=== PATIENT | male | born 1990 | race Two or more races ===

== ENCOUNTER 2016-11-09 20:01 | Emergency (ER) | payer SELFPAY ==
[~2016-11-09] VITALS: Ht 180.3 cm; Wt 113.4 kg
[2016-11-09 20:17] LABS: BASO # 0.1 x10^3/uL (0.0-0.2); BASO % 1 % (0-3); EOS % 2 % (0-3); HEMATOCRIT 40.7 % (39.0-53.0); HEMOGLOBIN 14.5 g/dL (13.0-17.5); LYMPH # 2.3 x10^3/uL (1.0-4.8); LYMPH % 20 % (24-48); MEAN CORPUSCULAR HEMOGLOBIN 30 pg (25-35); MEAN CORPUSCULAR HGB CONC 36 g/dL (31-37); MEAN CORPUSCULAR VOLUME 85 fL (79-100); MONO % 7 % (0-9); NEUT % 71 % (31-73); PLATELET COUNT 250 x10^3/uL (140-400); RED BLOOD COUNT 4.81 x10^6/uL (4.30-5.70); RED CELL DISTRIBUTION WIDTH 13.1 % (11.5-14.5); WHITE BLOOD COUNT 11.4 x10^3/uL (4.0-11.0)
[2016-11-09 20:34] LABS: ALBUMIN 3.7 g/dL (3.4-5.0); CALCIUM 8.5 mg/dL (8.5-10.1); CREATININE 0.9 mg/dL (0.7-1.3); DIRECT BILIRUBIN 0.2 mg/dL (0.0-0.2); TOTAL BILIRUBIN 0.8 mg/dL (0.2-1.0); TOTAL PROTEIN 7.4 g/dL (6.4-8.2)
[2016-11-09 20:35] LABS: POTASSIUM 2.8 mmol/L (3.5-5.1)
[2016-11-09] MEDS: HYDROmorphone 2 MG/ML VIAL IV PRN ×2 (21:16→23:12)
[2016-11-09] MEDS ORDERED: IV NORMAL SALINE 1000ML BAG 1,000 ML IV ONE (21:30)
[2016-11-09] MEDS ORDERED: ONDANSETRON PF 4 MG/2 ML VIAL. IV ONE (21:30)
[2016-11-09 21:31] LABS: BILIRUBIN,URINE NEGATIVE (NEG); GLUCOSE,URINE NEGATIVE (NEG); NITRITE,URINE NEGATIVE (NEG); PROTEIN,URINE NEGATIVE (NEG-TRACE)
[2016-11-09 21:42] LABS: BACTERIA,URINE FEW /HPF (0-FEW); RBC,URINE 0 /HPF (0-2); SQUAMOUS EPITHELIAL CELL,UR OCC /LPF
[2016-11-09] MEDS ORDERED: IOHEXOL 300 MG/ML 75 ML VIAL IV ONE (22:00)
[2016-11-09] MEDS ORDERED: CONTRAST GIVEN MC PRN (22:00)
[2016-11-09] MEDS: POTASSIUM CHLORIDE 10MEQ 100 ML IV SCH ×2 (22:15→23:13)
[2016-11-09] MEDS ORDERED: FAMO20TA5 PO (23:15)
--- NOTE | 2016-11-09 23:15 | PHYS DOC ---
Past Medical History Past Medical History: Pancreatitis Past Surgical History: Other Additional Past Surgical Histo: R TESTICLE REMOVAL Alcohol Use: Heavy Drug Use: None Adult General Chief Complaint Chief Complaint: ABDOMINAL PAIN HPI HPI 26-year-old male presenting to the emergency department today with abdominal pain. It is in the epigastrium. It is nonradiating mild to moderate. He states it feels like his recent episode of pancreatitis. His pain is been present for the past few hours. It is not associated with nausea or vomiting. Review of systems is negative for chest pain shortness of breath fevers or chills. He denies diarrhea or constipation. He was able to eat today without difficulty. All other review of systems is negative unless otherwise noted in history of present illness. Review of Systems Review of Systems SEE ABOVE. Current Medications Current Medications Current Medications Medications (Trade) Dose Ordered Sig/Audelia Start Time Stop Time Status Last Admin Dose Admin Famotidine (Pepcid) 20 mg 1X ONCE 11/09/16 23:30 11/09/16 23:31 DC 11/09/16 23:55 20 MG Hydromorphone HCl (Dilaudid) 0.5 mg PRN Q1HR PRN 11/09/16 21:00 11/10/16 02:07 DC 11/09/16 23:12 0.5 MG Info (Do NOT chart on this entry -- for MONITORING) 1 each PRN DAILY PRN 11/09/16 22:00 11/10/16 02:07 DC Iohexol (Omnipaque 300 Mg/ml) 75 ml 1X ONCE 11/09/16 22:00 11/09/16 22:01 DC 11/09/16 21:54 75 ML Ondansetron HCl (Zofran) 4 mg 1X ONCE 11/09/16 21:30 11/09/16 21:31 DC 11/09/16 21:15 4 MG Potassium Chloride 100 ml @ 100 mls/hr Q1H 11/09/16 22:00 11/10/16 02:07 DC 11/09/16 23:13 100 MLS/HR Sodium Chloride 1,000 ml @ 1,000 mls/hr 1X ONCE 11/09/16 21:30 11/09/16 22:29 DC 11/09/16 21:16 1,000 MLS/HR Allergies Allergies Allergies Coded Allergies Type Severity Reaction Last Updated Verified No Known Drug Allergies 04/12/15 No Physical Exam Physical Exam Constitutional: Well developed, well nourished, no acute distress, non-toxic appearance. HENT: Normocephalic, atraumatic, bilateral external ears normal, oropharynx moist, no oral exudates, nose normal. [] Eyes: PERRLA, EOMI, conjunctiva normal, no discharge. Neck: Normal range of motion, no tenderness, supple, no stridor. [] Cardiovascular:Heart rate regular rhythm, no murmur Lungs & Thorax: Bilateral breath sounds clear to auscultation [] Abdomen: Abdomen is soft and minimally tender in the epigastrium without rebound tenderness or guarding. Negative McBurney's point. Negative Pabon sign. Skin: Warm, dry, no erythema, no rash. [] Back: No tenderness, no CVA tenderness. Extremities: No tenderness, no cyanosis, no clubbing, ROM intact, no edema. [] Neurologic: Alert and oriented X 3, normal motor function, normal sensory function, no focal deficits noted. Psychologic: Affect normal, judgement normal, mood normal. [] Current Patient Data Vital Signs Vital Signs Date Time Temp Pulse Resp B/P (MAP) Pulse Ox O2 Delivery O2 Flow Rate FiO2 11/09/16 23:30 72 128/89 (102) 97 Room Air 11/09/16 20:30 18 11/09/16 20:13 98.8 98.8 Lab Values Laboratory Tests Test 11/09/16 20:10 11/09/16 21:14 White Blood Count 11.4 x10^3/uL (4.0-11.0) H Red Blood Count 4.81 x10^6/uL (4.30-5.70) Hemoglobin 14.5 g/dL (13.0-17.5) Hematocrit 40.7 % (39.0-53.0) Mean Corpuscular Volume 85 fL (79-100) Mean Corpuscular Hemoglobin 30 pg (25-35) Mean Corpuscular Hemoglobin Concent 36 g/dL (31-37) Red Cell Distribution Width 13.1 % (11.5-14.5) Platelet Count 250 x10^3/uL (140-400) Neutrophils (%) (Auto) 71 % (31-73) Lymphocytes (%) (Auto) 20 % (24-48) L Monocytes (%) (Auto) 7 % (0-9) Eosinophils (%) (Auto) 2 % (0-3) Basophils (%) (Auto) 1 % (0-3) Neutrophils # (Auto) 8.1 x10^3uL (1.8-7.7) H Lymphocytes # (Auto) 2.3 x10^3/uL (1.0-4.8) Monocytes # (Auto) 0.8 x10^3/uL (0.0-1.1) Eosinophils # (Auto) 0.2 x10^3/uL (0.0-0.7) Basophils # (Auto) 0.1 x10^3/uL (0.0-0.2) Sodium Level 141 mmol/L (136-145) Potassium Level 2.8 mmol/L (3.5-5.1) *L Chloride Level 104 mmol/L (98-107) Carbon Dioxide Level 28 mmol/L (21-32) Anion Gap 9 (6-14) Blood Urea Nitrogen 12 mg/dL (8-26) Creatinine 0.9 mg/dL (0.7-1.3) Estimated GFR (Cockcroft-Gault) 102.0 Glucose Level 101 mg/dL (70-99) H Calcium Level 8.5 mg/dL (8.5-10.1) Total Bilirubin 0.8 mg/dL (0.2-1.0) Direct Bilirubin 0.2 mg/dL (0.0-0.2) Aspartate Amino Transferase (AST) 238 U/L (15-37) H Alanine Aminotransferase (ALT) 160 U/L (16-63) H Alkaline Phosphatase 58 U/L (46-116) Total Protein 7.4 g/dL (6.4-8.2) Albumin 3.7 g/dL (3.4-5.0) Lipase 258 U/L (73-393) Urine Collection Type Unknown Urine Color Yellow Urine Clarity Clear Urine pH 7.0 Urine Specific [place] 1.010 Urine Protein Negative mg/dL (NEG-TRACE) Urine Glucose (UA) Negative mg/dL (NEG) Urine Ketones (Stick) Negative mg/dL (NEG) Urine Blood Negative (NEG) Urine Nitrite Negative (NEG) Urine Bilirubin Negative (NEG) Urine Urobilinogen Dipstick 1.0 mg/dL (0.2 mg/dL) Urine Leukocyte Esterase Negative (NEG) Urine RBC 0 /HPF (0-2) Urine WBC 5-10 /HPF (0-4) Urine Squamous Epithelial Cells Occ /LPF Urine Bacteria Few /HPF (0-FEW) Laboratory Tests 11/09/16 20:10 Laboratory Tests 11/09/16 20:10 EKG EKG [] Radiology/Procedures Radiology/Procedures [] Course & Med Decision Making Course & Med Decision Making Pertinent Labs and Imaging studies reviewed. (See chart for details) [] 26-year-old male presenting with epigastric abdominal pain. Vital signs afebrile normal heart rate. Pertinent physical exam findings showed a mildly tender epigastrium without rebound tenderness or guarding. Nontender appendix. Blood work obtained which showed mild leukocytosis. Urinalysis negative. Chemistry panel showed mild increase in ALT and AST. Potassium low at 2.8. No EKG changes present. IV K+ replaced. CT the abdomen pelvis obtained. The patient was given IV medications for pain. CT abd pelv neg for appy or antione. possible swelling of pancreas, but lipase is wnl. On reexamination his pain improved. The patient was then discharged home in stable condition to follow up with their primary care physician over the next 2-3 days. He was provided oral potassium supplementation (not in EMR due to down time, written script given) and pepcid upon d/c. They were to return if their symptoms worsened or if they were concerned for any reason. [id number] discharge instructions and return precautions were given. Patient's questions were answered to their satisfaction. Patient is comfortable plan. Dragon Disclaimer Dragon Disclaimer This electronic medical record was generated, in whole or in part, using a voice recognition dictation system. Departure Departure Impression: Primary Impression: Epigastric abdominal pain Disposition: HOME, SELF-CARE Condition: STABLE Referrals: MIRELLA JOHANSEN MD (PCP) Patient Instructions: Abdominal Pain Additional Instructions: Thank you for allowing us to participate in your care today. Followup with your primary care physician in 3 days if your symptoms do not improve. If you do not have a primary care provider you can ask for a list of our primary care providers. Return to the emergency department you have any new or concerning findings. This should be evaluated by the primary care physician and any necessary consulting services for continued management within a few days after discharge. Return to emergency room if you have any new or concerning symptoms including but not limited to fever, chills, nausea, vomiting, intractable pain, any new rashes, chest pain, shortness of air, uncontrolled bleeding, difficulty breathing, and/or vision loss. You may have been prescribed medication that can change in your level of thinking and ability to operate machinery. These medications include hydrocodone and Ativan. Also, Benadryl has been known to do this as well. Be sure to check with your pharmacist and ask if the medications you've prescribed can affect your level of consciousness. I recommend not operating heavy machinery or driving while on medication such as these. Scripts Famotidine (FAMOTIDINE) 20 Mg Tablet 20 MG PO HS for 5 Days, #5 TAB Prov: TU MCKENZIE MD 11/09/16 TU MCKENZIE MD November 09, 2016 23:15
[2016-11-09 23:30] VITALS: BP 128/89
[2016-11-09] MEDS ORDERED: FAMOTIDINE 20 MG/2 ML VIAL IVP ONE (23:30)
--- NOTE | 2016-11-10 09:41 | RAD ---
PROCEDURE CT abdomen and pelvis with contrast HISTORY Severe left upper quadrant and left lower quadrant abdominal pain, history of gallstones and pancreatitis TECHNIQUE Exposure: One or more of the following individualized dose reduction techniques were utilized for this exam: 1. Automated exposure control. 2. Adjustment of the mA and/or kV according to patient size. 3. Use of iterative reconstruction technique. Helical CT imaging abdomen and pelvis with 75 milliliters Omnipaque 300 intravenous contrast COMPARISON No prior FINDINGS Abdomen: 4 millimeter nodule right lower lobe image 4. Disc bulge L3-L4 may contribute to spinal canal stenosis. Chronic bilateral L5 spondylolysis. Pancreas subtle ground-glass density superior of the thigh the pancreas could be edema. Kidneys, adrenals, spleen, gallbladder and liver are unremarkable. GI tract including the appendix demonstrates no obstruction or inflammation. No abdominal fluid. No adenopathy. Pelvis: No pelvic fluid or adenopathy. Bladder, prostate, rectum and bones are unremarkable. IMPRESSION 1. Subtle ground-glass density adjacent of the pancreas could be edema indicating mild imaging changes of acute pancreatitis. Correlation with pancreatic enzyme lab values may be of benefit. 2. Appendix is negative. 3. Chronic L5 spondylolysis. L3-L4 disc bulge. Electronically signed by: Mauricio Sauer MD (November 09, 2016 22:18:03)
--- NOTE | 2016-11-10 10:44 | EKG ---
[facility] [address] [place] [address] Test Date: 2016-11-09 Test Time: 23:23:24 Pat Name: JULIO C MARISCAL Department: Room: Gender: M Stockholder: : 1990 Requested By: TU MCKENZIE Order Number: [id number] Reading MD: Lenin Gill Measurements Intervals [place] Rate: 72 P: 41 DE: 148 QRS: 18 QRSD: 88 T: 10 QT: 432 QTc: 475 Interpretive Statements SINUS RHYTHM PROLONGED QT NON-SPECIFIC ST/T CHANGES Electronically Signed On 11-14-2016 9:28:36 CDT by Lenin Gill
== END 2016-11-10 00:17 | disposition home or self-care (01) ==
LOC: ER 20:01
DX: R10.13 Epigastric pain (principal)
CPT/HCPCS: 36415; 74177; 80048; 80076; 81001; 83690; 85027; 87086; 93005; 96361; 96365; 96375; 96376; 99285; J1170; J2405; J3480; J7030; Q9967; S0028; 96374

== ENCOUNTER 2018-04-27 00:38 | Emergency (ER) | payer OTHER ==
[~2018-04-27] VITALS: Ht 180.3 cm; Wt 90.7 kg
[~2018-04-27 00:38] MED LIST: FAMO20TA5 PO
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
[2018-04-27] MEDS ORDERED: IBUPROFEN 600 MG TABLET. PO ONE (04:15)
[2018-04-27] MEDS ORDERED: ACETAMINOPHEN 325 MG TABLET. PO ONE (04:30)
== END 2018-04-27 04:09 | disposition left against medical advice (07) ==
LOC: ER 00:38
DX: S46.812A Strain of other muscles, fascia and tendons at shoulder and upper arm level, left arm, initial encounter (principal); S39.012A Strain of muscle, fascia and tendon of lower back, initial encounter; S80.01XA Contusion of right knee, initial encounter; V49.59XA Passenger injured in collision with other motor vehicles in traffic accident, initial encounter; Y93.89 Activity, other specified; Y92.410 Unspecified street and highway as the place of occurrence of the external cause; Y99.8 Other external cause status
CPT/HCPCS: 99281